=== PATIENT | male | born 1955 | race Caucasian/White ===

== ENCOUNTER 2023-07-02 10:09 | Inpatient (IN) | payer MEDICARE, SELFPAY ==
[2023-07-02 10:46] LABS: #Basophils 0.1 thou/uL (0.0-0.2); #Eosinphils 0.2 thou/uL (0.0-0.7); #Monocytes 0.8 thou/uL (0.11-0.59); #Neutrophils 7.3 thou/uL (1.40-6.50); %Eosinophils 2.4 % (0.0-10.0); %Lymphocytes 13.1 % (21.0-51.0); %Monocytes 8.4 % (0.0-10.0); %Neutrophils 74.8 % (42.0-75.0); Hematocrit 46.9 % (42.0-52.0); Hemoglobin 15.8 g/dL (14.0-18.0); Mean Corpuscular HGB CONC 33.7 g/dL (32.0-36.0); Mean Corpuscular Hemoglobin 28.9 pg (27.0-31.0); Mean Corpuscular Volume 85.9 fl (78.0-98.0); Mean Platelet Volume 9.9 fL (7.4-10.4); Platelet Count 220 10x3/uL (130-400); RBC Distribution Width 15.6 % (11.5-14.5); Red Blood Cell (RBC) Count 5.46 mill/uL (4.70-6.10); White Blood Cell (WBC) Count 9.8 10x3/uL (4.8-10.8)
[2023-07-02 11:06] LABS: INR-International Normal Ratio 1.3; Prothrombin Time 16.3 sec (12.0-14.7)
[2023-07-02 11:07] LABS: PTT 32.2 sec (22.9-36.1)
[2023-07-02 11:12] LABS: Troponin I 0.186 ng/mL (< 0.028)
[2023-07-02 11:35] LABS: ALT (SGPT) 25 U/L (8-55); AST (SGOT) 23 U/L (5-34); Albumin 3.7 g/dL (3.4-4.8); Alkaline Phosphatase 56 U/L (40-110); Anion Gap 15 mmol/L (10-20); BUN (Urea Nitrogen) 34 mg/dL (8.4-25.7); Bilirubin, Total 0.7 mg/dL (0.2-1.2); Calc. Creatinine Clearance 0 mL/min (70-130); Calcium 8.8 mg/dL (7.8-10.44); Carbon Dioxide 24 mmol/L (23-31); Chloride 99 mmol/L (98-107); Estimated GFR 41; Globulin 2.3 g/dL (2.4-3.5); Glucose 117 mg/dL (80-115); Potassium 3.6 mmol/L (3.5-5.1); Sodium 134 mmol/L (136-145)
[2023-07-02] MEDS ORDERED: Acetaminophen 325 MG TAB PO PRN (13:04)
[2023-07-02] MEDS ORDERED: Ondansetron ODT 4 MG TAB PO PRN (13:04)
[2023-07-02] MEDS ORDERED: Aspirin Chewable 81 MG TAB ONE (13:28)
[2023-07-02] MEDS ORDERED: Furosemide 40 MG/4 ML VIAL ONE (13:28)
[2023-07-02 13:42] LABS: Hemoglobin A1c 5.7 % (4.0-6.0)
[2023-07-02 13:53] LABS: Phosphorus 3.8 mg/dL (2.3-4.7)
[2023-07-02 13:54] LABS: Cardiac Risk 3.4 (Less than 4.5); Cholesterol 104 mg/dl (< 200 Desired); HDL Cholesterol 31 mg/dL (>60 Neg Risk); LDL Cholesterol, Calculated 60 mg/dL; Magnesium 2.1 mg/dL (1.6-2.6); Triglycerides 66 mg/dL (Less than 150)
[2023-07-02] MEDS ORDERED: Furosemide 20 MG/2 ML VIAL SLOW IVP SCH (14:00)
[2023-07-02] MEDS ORDERED: Furosemide 40 MG/4 ML VIAL SLOW IVP SCH ×3 (14:00→18:30)
[2023-07-02] MEDS ORDERED: Potassium Chloride 20 MEQ TAB PO SCH (15:00)
[2023-07-02] MEDS ORDERED: Electrolyte Replacement Protocol 1 EACH FS SCH (15:15)
[2023-07-02 15:41] LABS: Bacteria/HPF None Seen HPF (None Seen); Bilirubin Negative (Negative); Blood, Urine 1+ (Negative); CAUTI Indications for Culture Pelvic or flank pain; Clarity Clear (Clear); Glucose, Urine (Dipstick) Normal (Negative); Ketone, Urine Negative (Negative); Leukocyte Negative Leu/uL (Negative); Nitrite Negative (Negative); Protein, Urine (Dipstick) 70 mg/dL (Neg-Trace); RBC/HPF 0-3 HPF (0-3); Specific Gravity, Urine 1.014 (1.002-1.036); Squamous Epithelial 0-3 HPF (0-3); Urobilinogen Normal mg/dL (Less than 2); WBC/HPF 0-3 HPF (0-3); pH, Urine 5.5 (5.0-9.0)
[2023-07-02 15:43] LABS: Urine Culture Reflex No No
[2023-07-02 17:45] VITALS: BMI 44.6
[2023-07-02] MEDS ORDERED: Metolazone 2.5 MG TAB PO SCH (17:45)
[2023-07-02] MEDS ORDERED: Furosemide 100 MG in Sodium Chloride 0.9% 90 ML IVPB SCH (18:15)
[2023-07-02 18:25] LABS: Actual Bicarbonate (HCO3v) 28.4 mEq/L (22-28); Base Excess 0.9 mEq/L (-2.0 to +3.0); Chloride (VBG) 99 mmol/L (98-106); Hematocrit-VBG 46 % (42.0-52.0); Hemoglobin (Hb) 15.8 g/dL (12.6-17.4); Potassium (VBG) 3.88 mmol/L (3.70-5.30); Sodium 136 mmol/L (133-146); pH (venous) 7.318 (7.32-7.43)
[2023-07-02 18:43] LABS: Troponin I 0.169 ng/mL (< 0.028)
[2023-07-02] MEDS ORDERED: Nystatin Powder 15 GM BOT TOP SCH (21:00)
[2023-07-02] MEDS ORDERED: Heparin 5,000 UNITS/ML VIAL SC SCH (21:00)
[2023-07-02 21:10] LABS: Troponin I 0.192 ng/mL (< 0.028)
[2023-07-02] MEDS ORDERED: hydrALAZINE 20 MG/ML VIAL SLOW IVP PRN (22:00)
[2023-07-03] MEDS ORDERED: Metoprolol Tartrate 5 MG/5 ML VIAL IVP SCH (00:15)
[2023-07-03] MEDS: Metoprolol Tartrate 5 MG/5 ML VIAL IVP SCH ×3 (01:24→09:42)
[2023-07-03 01:45] LABS: Anion Gap 16 mmol/L (10-20); BUN (Urea Nitrogen) 35 mg/dL (8.4-25.7); Calc. Creatinine Clearance 75 mL/min (70-130); Calcium 8.9 mg/dL (7.8-10.44); Carbon Dioxide 24 mmol/L (23-31); Chloride 100 mmol/L (98-107); Estimated GFR 36; Glucose 108 mg/dL (80-115); Potassium 3.7 mmol/L (3.5-5.1); Sodium 136 mmol/L (136-145)
[2023-07-03] MEDS ORDERED: Ondansetron ODT 4 MG TAB PO PRN (02:16)
[2023-07-03] MEDS ORDERED: Acetaminophen 325 MG TAB PO PRN (02:16)
[2023-07-03] MEDS ORDERED: Electrolyte Replacement Protocol 1 EACH FS SCH (02:30)
[2023-07-03] MEDS ORDERED: dilTIAZem 125 MG in Sodium Chloride 0.9% 100 ML IVPB SCH (03:15)
[2023-07-03] MEDS: Furosemide 40 MG/4 ML VIAL SLOW IVP SCH ×2 (05:15→12:57)
[2023-07-03] MEDS ORDERED: Magnesium 2 GM/50 ML(in water) 2 GM in Premix Bag 1 BAG IVPB SCH (08:00)
[2023-07-03] MEDS ORDERED: Pantoprazole 40 MG VIAL IVP SCH (09:00)
[2023-07-03] MEDS ORDERED: Heparin 5,000 UNITS/ML VIAL SC SCH (09:00)
[2023-07-03] MEDS ORDERED: Aspirin Chewable 81 MG TAB PO SCH (09:00)
[2023-07-03] MEDS: Aspirin Chewable 81 MG TAB PO SCH (09:41)
[2023-07-03] MEDS: Nystatin Powder 15 GM BOT TOP SCH ×2 (09:41→22:16)
[2023-07-03] MEDS: Pantoprazole 40 MG VIAL IVP SCH (10:44)
[2023-07-03] MEDS: Albumin 25% 25 GM/100 ML BOT IVPB SCH ×2 (12:52→16:18)
[2023-07-03] MEDS: Nebivolol HCl 5 MG TAB PO SCH (13:29)
[2023-07-03] MEDS: Losartan 25 MG TAB PO SCH (16:17)
[2023-07-04 05:18] LABS: #Basophils 0.1 thou/uL (0.0-0.2); #Eosinphils 0.4 thou/uL (0.0-0.7); #Monocytes 0.6 thou/uL (0.11-0.59); #Neutrophils 5.1 thou/uL (1.40-6.50); %Basophils 0.9 % (0.0-1.0); %Eosinophils 5.4 % (0.0-10.0); %Lymphocytes 17.8 % (21.0-51.0); %Monocytes 8.5 % (0.0-10.0); Hematocrit 43.8 % (42.0-52.0); Hemoglobin 14.1 g/dL (14.0-18.0); Mean Corpuscular HGB CONC 32.2 g/dL (32.0-36.0); Mean Corpuscular Hemoglobin 28.5 pg (27.0-31.0); Mean Corpuscular Volume 88.5 fl (78.0-98.0); Mean Platelet Volume 9.9 fL (7.4-10.4); Platelet Count 175 10x3/uL (130-400); RBC Distribution Width 15.6 % (11.5-14.5); Red Blood Cell (RBC) Count 4.95 mill/uL (4.70-6.10); White Blood Cell (WBC) Count 7.6 10x3/uL (4.8-10.8)
[2023-07-04 05:50] LABS: ALT (SGPT) 22 U/L (8-55); AST (SGOT) 20 U/L (5-34); Albumin 3.9 g/dL (3.4-4.8); Alkaline Phosphatase 49 U/L (40-110); Anion Gap 15 mmol/L (10-20); BUN (Urea Nitrogen) 34 mg/dL (8.4-25.7); Bilirubin, Total 0.5 mg/dL (0.2-1.2); Calc. Creatinine Clearance 86 mL/min (70-130); Calcium 9.1 mg/dL (7.8-10.44); Carbon Dioxide 30 mmol/L (23-31); Chloride 96 mmol/L (98-107); Estimated GFR 37; Globulin 2.1 g/dL (2.4-3.5); Glucose 90 mg/dL (80-115); Magnesium 1.9 mg/dL (1.6-2.6); Potassium 3.4 mmol/L (3.5-5.1); Sodium 138 mmol/L (136-145)
[2023-07-04] MEDS: Furosemide 40 MG/4 ML VIAL SLOW IVP SCH ×2 (06:30→13:36)
[2023-07-04] MEDS ORDERED: Magnesium 2 GM/50 ML(in water) 2 GM in Premix Bag 1 BAG IVPB SCH (08:00)
[2023-07-04] MEDS ORDERED: Potassium Chloride 20 MEQ TAB PO SCH (08:00)
[2023-07-04] MEDS ORDERED: dilTIAZem 125 MG in Sodium Chloride 0.9% 100 ML IVPB SCH (09:25)
[2023-07-04] MEDS: Nebivolol HCl 5 MG TAB PO SCH (09:52)
[2023-07-04] MEDS: Nystatin Powder 15 GM BOT TOP SCH (09:52)
[2023-07-04] MEDS: Aspirin Chewable 81 MG TAB PO SCH (09:52)
[2023-07-04] MEDS: Pantoprazole 40 MG VIAL IVP SCH (09:52)
[2023-07-04] MEDS: Metolazone 2.5 MG TAB PO SCH (13:37)
[2023-07-04] MEDS: Losartan 25 MG TAB PO SCH (16:57)
[2023-07-05] MEDS: Nystatin Powder 15 GM BOT TOP SCH ×3 (00:38→21:57)
[2023-07-05] MEDS: Furosemide 40 MG/4 ML VIAL SLOW IVP SCH ×2 (06:32→13:38)
[2023-07-05 07:20] LABS: #Basophils 0.1 thou/uL (0.0-0.2); #Eosinphils 0.3 thou/uL (0.0-0.7); #Monocytes 0.6 thou/uL (0.11-0.59); #Neutrophils 5.2 thou/uL (1.40-6.50); %Basophils 1.1 % (0.0-1.0); %Eosinophils 4.1 % (0.0-10.0); %Lymphocytes 17.2 % (21.0-51.0); %Monocytes 8.1 % (0.0-10.0); %Neutrophils 69.2 % (42.0-75.0); Hematocrit 43.4 % (42.0-52.0); Hemoglobin 14.1 g/dL (14.0-18.0); Mean Corpuscular HGB CONC 32.5 g/dL (32.0-36.0); Mean Corpuscular Hemoglobin 28.3 pg (27.0-31.0); Mean Platelet Volume 9.5 fL (7.4-10.4); Platelet Count 186 10x3/uL (130-400); RBC Distribution Width 15.6 % (11.5-14.5); Red Blood Cell (RBC) Count 4.99 mill/uL (4.70-6.10); White Blood Cell (WBC) Count 7.5 10x3/uL (4.8-10.8)
[2023-07-05 07:42] LABS: ALT (SGPT) 19 U/L (8-55); AST (SGOT) 18 U/L (5-34); Albumin 3.9 g/dL (3.4-4.8); Alkaline Phosphatase 49 U/L (40-110); Anion Gap 12 mmol/L (10-20); BUN (Urea Nitrogen) 34 mg/dL (8.4-25.7); Bilirubin, Total 0.7 mg/dL (0.2-1.2); Calc. Creatinine Clearance 88 mL/min (70-130); Calcium 9.2 mg/dL (7.8-10.44); Carbon Dioxide 36 mmol/L (23-31); Chloride 93 mmol/L (98-107); Estimated GFR 38; Globulin 2.1 g/dL (2.4-3.5); Glucose 106 mg/dL (80-115); Magnesium 1.9 mg/dL (1.6-2.6); Potassium 3.5 mmol/L (3.5-5.1); Sodium 137 mmol/L (136-145)
[2023-07-05] MEDS ORDERED: Magnesium 2 GM/50 ML(in water) 2 GM in Premix Bag 1 BAG IVPB SCH (08:30)
[2023-07-05] MEDS ORDERED: cloNIDine 0.1 MG TAB PO SCH (09:00)
[2023-07-05] MEDS ORDERED: Potassium Chloride 20 MEQ TAB PO SCH (09:00)
[2023-07-05] MEDS: Aspirin Chewable 81 MG TAB PO SCH (09:05)
[2023-07-05] MEDS: Azelastine 137 MCG/NASAL Spray 30 ML NS SCH (09:05)
[2023-07-05] MEDS: Carvedilol 3.125 MG TAB PO SCH ×2 (09:05→17:36)
[2023-07-05] MEDS: Pantoprazole 40 MG VIAL IVP SCH (09:06)
[2023-07-05] MEDS: Metolazone 2.5 MG TAB PO SCH (13:38)
[2023-07-05] MEDS: Losartan 25 MG TAB PO SCH (17:37)
[2023-07-06] MEDS: Sodium Chloride 0.65% Nasal 44 ML BOT EA NARE PRN ×3 (00:49→17:43)
[2023-07-06 04:08] LABS: #Basophils 0.1 thou/uL (0.0-0.2); #Eosinphils 0.5 thou/uL (0.0-0.7); #Monocytes 0.6 thou/uL (0.11-0.59); %Basophils 1.3 % (0.0-1.0); %Eosinophils 6.5 % (0.0-10.0); %Lymphocytes 18.8 % (21.0-51.0); %Monocytes 8.2 % (0.0-10.0); %Neutrophils 64.8 % (42.0-75.0); Hematocrit 43.6 % (42.0-52.0); Hemoglobin 14.4 g/dL (14.0-18.0); Mean Corpuscular Hemoglobin 28.9 pg (27.0-31.0); Mean Corpuscular Volume 87.6 fl (78.0-98.0); Mean Platelet Volume 10.1 fL (7.4-10.4); Platelet Count 190 10x3/uL (130-400); RBC Distribution Width 15.6 % (11.5-14.5); Red Blood Cell (RBC) Count 4.98 mill/uL (4.70-6.10); White Blood Cell (WBC) Count 7.7 10x3/uL (4.8-10.8)
[2023-07-06] MEDS ORDERED: Metoprolol Tartrate 5 MG/5 ML VIAL IVP SCH (04:15)
[2023-07-06 04:39] LABS: ALT (SGPT) 23 U/L (8-55); AST (SGOT) 27 U/L (5-34); Albumin 3.9 g/dL (3.4-4.8); Alkaline Phosphatase 52 U/L (40-110); Anion Gap 16 mmol/L (10-20); BUN (Urea Nitrogen) 32 mg/dL (8.4-25.7); Bilirubin, Total 0.5 mg/dL (0.2-1.2); Calc. Creatinine Clearance 82 mL/min (70-130); Calcium 9.2 mg/dL (7.8-10.44); Carbon Dioxide 34 mmol/L (23-31); Chloride 93 mmol/L (98-107); Estimated GFR 35; Globulin 2.7 g/dL (2.4-3.5); Glucose 108 mg/dL (80-115); Potassium 3.5 mmol/L (3.5-5.1); Protein, Total 6.6 g/dL (5.8-8.1); Sodium 139 mmol/L (136-145)
[2023-07-06 04:45] LABS: Magnesium 2.1 mg/dL (1.6-2.6)
[2023-07-06] MEDS: Furosemide 40 MG/4 ML VIAL SLOW IVP SCH ×2 (05:34→14:12)
[2023-07-06] MEDS ORDERED: Potassium Chloride 20 MEQ TAB PO SCH ×2 (08:00→20:15)
[2023-07-06] MEDS: Azelastine 137 MCG/NASAL Spray 30 ML NS SCH (08:27)
[2023-07-06] MEDS: Carvedilol 3.125 MG TAB PO SCH ×2 (08:27→16:21)
[2023-07-06] MEDS: Aspirin Chewable 81 MG TAB PO SCH (08:27)
[2023-07-06] MEDS: Nystatin Powder 15 GM BOT TOP SCH ×2 (08:27→20:53)
[2023-07-06] MEDS: Pantoprazole 40 MG VIAL IVP SCH (08:28)
[2023-07-06] MEDS ORDERED: Milrinone 20 MG in Sodium Chloride 0.9% 100 ML IVPB SCH (10:45)
[2023-07-06] MEDS: Metolazone 2.5 MG TAB PO SCH (14:19)
[2023-07-06] MEDS ORDERED: Carvedilol 3.125 MG TAB PO SCH (20:15)
[2023-07-07 04:09] LABS: #Basophils 0.1 thou/uL (0.0-0.2); #Eosinphils 0.4 thou/uL (0.0-0.7); #Monocytes 0.8 thou/uL (0.11-0.59); %Basophils 1.2 % (0.0-1.0); %Eosinophils 6.6 % (0.0-10.0); %Lymphocytes 20.1 % (21.0-51.0); %Monocytes 12.1 % (0.0-10.0); %Neutrophils 59.7 % (42.0-75.0); Hematocrit 41.8 % (42.0-52.0); Hemoglobin 13.9 g/dL (14.0-18.0); Mean Corpuscular HGB CONC 33.3 g/dL (32.0-36.0); Mean Corpuscular Hemoglobin 28.5 pg (27.0-31.0); Mean Corpuscular Volume 85.7 fl (78.0-98.0); Mean Platelet Volume 9.8 fL (7.4-10.4); Platelet Count 186 10x3/uL (130-400); RBC Distribution Width 15.5 % (11.5-14.5); Red Blood Cell (RBC) Count 4.88 mill/uL (4.70-6.10); White Blood Cell (WBC) Count 6.7 10x3/uL (4.8-10.8)
[2023-07-07 04:33] LABS: ALT (SGPT) 25 U/L (8-55); AST (SGOT) 27 U/L (5-34); Albumin 3.8 g/dL (3.4-4.8); Alkaline Phosphatase 52 U/L (40-110); BUN (Urea Nitrogen) 31 mg/dL (8.4-25.7); Bilirubin, Total 0.8 mg/dL (0.2-1.2); Calc. Creatinine Clearance 84 mL/min (70-130); Calcium 9.5 mg/dL (7.8-10.44); Estimated GFR 37; Globulin 2.2 g/dL (2.4-3.5); Glucose 105 mg/dL (80-115)
[2023-07-07] MEDS: Furosemide 40 MG/4 ML VIAL SLOW IVP SCH ×2 (05:27→13:37)
[2023-07-07 06:58] LABS: Anion Gap 19 mmol/L (10-20); Carbon Dioxide 35 mmol/L (23-31); Chloride 89 mmol/L (98-107); Potassium 3.5 mmol/L (3.5-5.1); Sodium 139 mmol/L (136-145)
[2023-07-07] MEDS ORDERED: Carvedilol 6.25 MG TAB PO SCH ×2 (08:00→15:00)
[2023-07-07] MEDS ORDERED: Potassium Chloride 20 MEQ TAB PO SCH (08:00)
[2023-07-07] MEDS: Aspirin Chewable 81 MG TAB PO SCH (08:38)
[2023-07-07] MEDS: Nystatin Powder 15 GM BOT TOP SCH ×2 (08:39→21:32)
[2023-07-07] MEDS: Potassium Chloride 20 MEQ TAB PO SCH ×2 (08:39→21:26)
[2023-07-07] MEDS: Pantoprazole 40 MG VIAL IVP SCH (08:39)
[2023-07-07] MEDS: Azelastine 137 MCG/NASAL Spray 30 ML NS SCH (08:39)
[2023-07-07] MEDS: Sodium Chloride 0.65% Nasal 44 ML BOT EA NARE PRN (08:40)
[2023-07-07] MEDS: Metolazone 2.5 MG TAB PO SCH (13:37)
[2023-07-07] MEDS: Digoxin 0.5 MG/2 ML AMP SLOW IVP SCH ×2 (14:01→19:45)
[2023-07-08] MEDS: Digoxin 0.5 MG/2 ML AMP SLOW IVP SCH ×2 (01:24→08:28)
[2023-07-08 04:25] LABS: #Basophils 0.1 thou/uL (0.0-0.2); #Eosinphils 0.4 thou/uL (0.0-0.7); #Monocytes 1.1 thou/uL (0.11-0.59); #Neutrophils 4.7 thou/uL (1.40-6.50); %Basophils 1.3 % (0.0-1.0); %Eosinophils 4.7 % (0.0-10.0); %Lymphocytes 20.8 % (21.0-51.0); %Monocytes 13.6 % (0.0-10.0); %Neutrophils 59.3 % (42.0-75.0); Hematocrit 41.1 % (42.0-52.0); Hemoglobin 13.7 g/dL (14.0-18.0); Mean Corpuscular HGB CONC 33.3 g/dL (32.0-36.0); Mean Corpuscular Hemoglobin 28.1 pg (27.0-31.0); Mean Corpuscular Volume 84.4 fl (78.0-98.0); Mean Platelet Volume 10.4 fL (7.4-10.4); Platelet Count 174 10x3/uL (130-400); RBC Distribution Width 15.4 % (11.5-14.5); Red Blood Cell (RBC) Count 4.87 mill/uL (4.70-6.10); White Blood Cell (WBC) Count 7.9 10x3/uL (4.8-10.8)
[2023-07-08 04:51] LABS: Anion Gap 14 mmol/L (10-20); BUN (Urea Nitrogen) 28 mg/dL (8.4-25.7); Calc. Creatinine Clearance 102 mL/min (70-130); Calcium 9.2 mg/dL (7.8-10.44); Carbon Dioxide 36 mmol/L (23-31); Chloride 88 mmol/L (98-107); Estimated GFR 48; Glucose 99 mg/dL (80-115); Magnesium 1.6 mg/dL (1.6-2.6); Potassium 3.4 mmol/L (3.5-5.1); Sodium 135 mmol/L (136-145)
[2023-07-08] MEDS: Furosemide 40 MG/4 ML VIAL SLOW IVP SCH ×2 (05:48→14:22)
[2023-07-08] MEDS ORDERED: Potassium Chloride 20 MEQ TAB PO SCH (08:00)
[2023-07-08] MEDS ORDERED: Spironolactone 25 MG TAB PO SCH (08:00)
[2023-07-08] MEDS ORDERED: Magnesium 2 GM/50 ML(in water) 2 GM in Premix Bag 1 BAG IVPB SCH ×2 (08:00→10:00)
[2023-07-08] MEDS ORDERED: AcetaZOLAMIDE 250 MG TAB PO SCH (08:15)
[2023-07-08] MEDS: Aspirin Chewable 81 MG TAB PO SCH (08:28)
[2023-07-08] MEDS: Nystatin Powder 15 GM BOT TOP SCH ×2 (08:30→20:23)
[2023-07-08] MEDS: Potassium Chloride 20 MEQ TAB PO SCH ×2 (08:32→20:22)
[2023-07-08] MEDS: Sodium Chloride 0.65% Nasal 44 ML BOT EA NARE PRN (08:33)
[2023-07-08] MEDS: Pantoprazole 40 MG VIAL IVP SCH (08:35)
[2023-07-08] MEDS: Azelastine 137 MCG/NASAL Spray 30 ML NS SCH (11:28)
[2023-07-08] MEDS ORDERED: Piperacillin/Tazobactam 3.375 GM in Sodium Chloride 0.9% 100 ML IVPB SCH (14:30)
[2023-07-08] MEDS: Piperacillin/Tazobactam 3.375 GM in Sodium Chloride 0.9% 100 ML IVPB SCH (16:46)
[2023-07-09] MEDS: Piperacillin/Tazobactam 3.375 GM in Sodium Chloride 0.9% 100 ML IVPB SCH ×3 (03:20→17:47)
[2023-07-09 04:32] LABS: #Basophils 0.1 thou/uL (0.0-0.2); #Eosinphils 0.5 thou/uL (0.0-0.7); #Monocytes 1.1 thou/uL (0.11-0.59); #Neutrophils 4.5 thou/uL (1.40-6.50); %Eosinophils 5.8 % (0.0-10.0); %Lymphocytes 22.7 % (21.0-51.0); %Monocytes 13.2 % (0.0-10.0); Hematocrit 39.9 % (42.0-52.0); Hemoglobin 13.4 g/dL (14.0-18.0); Mean Corpuscular HGB CONC 33.6 g/dL (32.0-36.0); Mean Corpuscular Hemoglobin 28.6 pg (27.0-31.0); Mean Corpuscular Volume 85.1 fl (78.0-98.0); Mean Platelet Volume 10.4 fL (7.4-10.4); Platelet Count 165 10x3/uL (130-400); RBC Distribution Width 15.6 % (11.5-14.5); Red Blood Cell (RBC) Count 4.69 mill/uL (4.70-6.10); White Blood Cell (WBC) Count 7.9 10x3/uL (4.8-10.8)
[2023-07-09 04:56] LABS: Anion Gap 15 mmol/L (10-20); BUN (Urea Nitrogen) 27 mg/dL (8.4-25.7); Calc. Creatinine Clearance 93 mL/min (70-130); Calcium 9.2 mg/dL (7.8-10.44); Carbon Dioxide 33 mmol/L (23-31); Chloride 90 mmol/L (98-107); Estimated GFR 44; Glucose 103 mg/dL (80-115); Magnesium 2.2 mg/dL (1.6-2.6); Potassium 3.3 mmol/L (3.5-5.1); Sodium 135 mmol/L (136-145)
[2023-07-09] MEDS: Furosemide 40 MG/4 ML VIAL SLOW IVP SCH ×2 (05:32→13:23)
[2023-07-09] MEDS ORDERED: Potassium Chloride 20 MEQ TAB PO SCH (07:00)
[2023-07-09] MEDS ORDERED: AcetaZOLAMIDE 250 MG TAB PO SCH (09:00)
[2023-07-09] MEDS: Aspirin Chewable 81 MG TAB PO SCH (09:10)
[2023-07-09] MEDS: Digoxin 0.125 MG TAB PO SCH (09:10)
[2023-07-09] MEDS: Magnesium Oxide 400 MG TAB PO SCH ×2 (09:10→21:11)
[2023-07-09] MEDS: Azelastine 137 MCG/NASAL Spray 30 ML NS SCH (09:11)
[2023-07-09] MEDS: Nystatin Powder 15 GM BOT TOP SCH ×2 (09:12→21:12)
[2023-07-09] MEDS: Pantoprazole 40 MG VIAL IVP SCH (09:27)
[2023-07-09] MEDS: Potassium Chloride 20 MEQ TAB PO SCH ×2 (13:23→21:12)
[2023-07-10] MEDS: Piperacillin/Tazobactam 3.375 GM in Sodium Chloride 0.9% 100 ML IVPB SCH ×2 (01:46→09:35)
[2023-07-10 04:21] LABS: #Basophils 0.1 thou/uL (0.0-0.2); #Eosinphils 0.6 thou/uL (0.0-0.7); #Monocytes 1.1 thou/uL (0.11-0.59); #Neutrophils 5.5 thou/uL (1.40-6.50); %Basophils 1.1 % (0.0-1.0); %Eosinophils 6.9 % (0.0-10.0); %Lymphocytes 20.9 % (21.0-51.0); %Monocytes 11.5 % (0.0-10.0); %Neutrophils 59.1 % (42.0-75.0); Hematocrit 39.1 % (42.0-52.0); Hemoglobin 13.4 g/dL (14.0-18.0); Mean Corpuscular HGB CONC 34.3 g/dL (32.0-36.0); Mean Corpuscular Hemoglobin 29.1 pg (27.0-31.0); Mean Platelet Volume 9.8 fL (7.4-10.4); Platelet Count 171 10x3/uL (130-400); RBC Distribution Width 15.5 % (11.5-14.5); White Blood Cell (WBC) Count 9.3 10x3/uL (4.8-10.8)
[2023-07-10 04:58] LABS: Anion Gap 15 mmol/L (10-20); BUN (Urea Nitrogen) 30 mg/dL (8.4-25.7); Calc. Creatinine Clearance 80 mL/min (70-130); Calcium 9.3 mg/dL (7.8-10.44); Carbon Dioxide 30 mmol/L (23-31); Chloride 92 mmol/L (98-107); Estimated GFR 38; Glucose 102 mg/dL (80-115); Potassium 3.4 mmol/L (3.5-5.1); Sodium 134 mmol/L (136-145)
[2023-07-10] MEDS: Potassium Chloride 20 MEQ TAB PO SCH ×2 (06:25→13:48)
[2023-07-10] MEDS: Furosemide 40 MG/4 ML VIAL SLOW IVP SCH (06:25)
[2023-07-10] MEDS: Pantoprazole 40 MG VIAL IVP SCH (09:34)
[2023-07-10] MEDS: Digoxin 0.125 MG TAB PO SCH (09:36)
[2023-07-10] MEDS: Aspirin Chewable 81 MG TAB PO SCH (09:36)
[2023-07-10] MEDS: Magnesium Oxide 400 MG TAB PO SCH (09:36)
[2023-07-10] MEDS: Azelastine 137 MCG/NASAL Spray 30 ML NS SCH (09:36)
[2023-07-10] MEDS: Nystatin Powder 15 GM BOT TOP SCH (09:37)
[2023-07-10 15:57] VITALS: BP 119/71; TEMP 97.4
[2023-07-11] MEDS ORDERED: Furosemide 40 MG/4 ML VIAL SLOW IVP SCH (06:00)
== END 2023-07-10 16:50 | disposition short-term general hospital (02) | DRG 280 ==
LOC: ERS 10:09 → 2NO 15:00 → ERS 15:00 → 2NO 17:29 → IMCU/EMU 22:14 → 2NO 22:24
PROVIDERS: ADMIT Internal Medicine; ATTEND Hospitalist
PROC: 30233J1 Transfusion of Nonautologous Serum Albumin into Peripheral Vein, Percutaneous Approach (ICD-10-PCS; 2023-07-03)
PROC: 02HV33Z Insertion of Infusion Device into Superior Vena Cava, Percutaneous Approach (ICD-10-PCS; principal; 2023-07-09)
PROC: B5181ZA Fluoroscopy of Superior Vena Cava using Low Osmolar Contrast, Guidance (ICD-10-PCS; 2023-07-09)
PROC: B548ZZA Ultrasonography of Superior Vena Cava, Guidance (ICD-10-PCS; 2023-07-09)
DX: I13.0 Hypertensive heart and chronic kidney disease with heart failure and stage 1 through stage 4 chronic kidney disease, or unspecified chronic kidney disease (principal); I50.23 Acute on chronic systolic (congestive) heart failure; I21.A1 Myocardial infarction type 2; J96.01 Acute respiratory failure with hypoxia; N17.9 Acute kidney failure, unspecified; Z68.42 Body mass index [BMI] 45.0-49.9, adult; L03.115 Cellulitis of right lower limb; I42.8 Other cardiomyopathies; E66.01 Morbid (severe) obesity due to excess calories; I48.91 Unspecified atrial fibrillation; N18.30 Chronic kidney disease, stage 3 unspecified; I51.3 Intracardiac thrombosis, not elsewhere classified; E87.6 Hypokalemia
CPT/HCPCS: 36415; 36416; 36569; 71045; 71250; 74177; 80048; 80053; 80061; 81001; 82805; 83036; 83605; 83735; 83880; 84100; 84145; 84443; 84484; 85025; 85610; 85730; 86140; 87040; 87149; 93005; 93010; 93306; 93798; 93923; 93970; 96372; 96374; 97139; C9113; J0360; J1160; J1644; J1650; J1940; J2260; J2543; J3475; J3490; P9047